=== PATIENT | female | born 1985 | race Two or more races ===

== ENCOUNTER 2017-09-12 22:51 | Emergency (ER) | payer OTHER ==
[2017-09-12] MEDS ORDERED: Naproxen TAB* 250 MG PO ONE (23:16)
[2017-09-12] MEDS ORDERED: Cyclobenzaprine TAB* 10 MG PO ONE (23:17)
[2017-09-13 00:18] VITALS: BP 104/58
--- NOTE | 2017-09-13 03:44 | ED ---
Esa Ramos Nilda, scribed for Thiago Boucher MD on 09/12/17 at 2324 . Adult Trauma - HPI Summary HPI Summary: This patient is a 31 year old F BIBA accompanied by with a chief complaint of constant lower back pain (burning) s/p slipping down a few steps and landing on back about 20 mins ago. Pt states she was ambulatory after fall and was able to stand up unassisted. The patient rates the pain 6/10 in severity. Symptoms aggravated by movement and palpation, and alleviated by rest. Patient reports abrasion on lower back. She denies numbness and weakness in LE. LNMP 5 days ago. She states no daily medications or other PMHx. - History of Current Complaint Chief Complaint: EDBackInjuryPain Stated Complaint: FALL/LOWER BACK PAIN Time Seen by Provider: 09/12/17 23:06 Hx Obtained From: Patient Mechanism of Injury: Fall Ambulatory at the Scene: Yes Loss of Consciousness: no loss of consciousness Onset/Duration: Started Minutes Ago, Traumatic, Still Present Onset of Pain: Immediate Current Severity: Moderate Pain Intensity: 6 Pain Scale Used: 0-10 Numeric Location: Back - lower Character: Burning Aggravating Factor(s): Movement, Palpation Alleviating Factor(s): Rest Associated Signs & Symptoms: Positive: Other: - abrasion on lower back, lower back pain; She denies numbness and weakness in LE - Allergy/Home Medications Allergies/Adverse Reactions: Allergies Allergy/AdvReac Type Severity Reaction Status Date / Time No Known Allergies Allergy Verified 09/12/17 23:08 PMH/Surg Hx/FS Hx/Imm Hx Sensory History: Denies: Hx Legally Blind EENT History: Denies: Hx Deafness Infectious Disease History: No Infectious Disease History: Denies: Traveled Outside the [place] in Last 30 Days - Social History Lives: With Family Alcohol Use: Rare Substance Use Type: Reports: None Smoking Status (MU): Never Smoked Tobacco Review of Systems Positive: Other - mechanical fall Positive: Other - lower back pain Positive: Other - abrasion on lower back Negative: Weakness, Numbness All Other Systems Reviewed And Are Negative: Yes Physical Exam - Summary Physical Exam Summary: Appearance: Well appearing, no pain distress Skin: warm, dry, reflects adequate perfusion, 3x2 cm abrasion on left side to midline of mid-lumbar area. Head/face: normal Eyes: EOMI, ROSY ENT: normal Neck: supple, non-tender Respiratory: CTA, breath sounds present Cardiovascular: RRR, pulses symmetrical Abdomen: non-tender, soft Bowel sounds: present Musculoskeletal: strength/ROM intact, Tenderness and spasm at left lumbar area. Negative straight leg raise. Neuro: normal, sensory motor intact, A&Ox3 Triage Information Reviewed: Yes Vital Signs On Initial Exam: Initial Vitals Temp Pulse Resp BP Pulse Ox 98.4 F 72 16 107/61 100 09/12/17 22:56 09/12/17 22:56 09/12/17 22:56 09/12/17 22:56 09/12/17 22:56 Vital Signs Reviewed: Yes Diagnostics - Vital Signs Vital Signs Temp Pulse Resp BP Pulse Ox 09/12/17 22:56 98.4 F 72 16 107/61 100 - Laboratory Lab Statement: Any lab studies that have been ordered have been reviewed, and results considered in the medical decision making process. - Radiology L-spine XR Radiology Interpretation Completed By: ED Physician - L-spine XR reveals negative for fracture. Cannot fully evaluate spinous process of L1. Re-Evaluation - Re-Evaluation First Eval Re-Evaluation Time: 23:59 Change: Improved Comment: Reviewed imaging with pt. Pt feels better. She declines trigger point injection. She is agreeable to D/C. Adult Trauma Course/Dx - Course Course Of Treatment: fall with abrasion and contusion. No fx seen on xray. Rads report pending. Offered trigger point injection for spasm but refused. Tx with oral meds with improvement. - Diagnoses Provider Diagnoses: Lumbar contusion, Lumbar strain, Abrasion Discharge - Sign-Out/Discharge Documenting (check all that apply): Discharge - home - Discharge Plan Condition: Good Disposition: HOME Prescriptions: Cyclobenzaprine (NF) [Cyclobenzaprine 5 MG (NF)] 5 mg PO TID PRN #10 tab PRN Reason: muscle pain Patient Education Materials: Low Back Strain (ED), Abrasion (ED) Referrals: [facility] - [facility] WINTER [Primary Care Provider] - Additional Instructions: Ibuprofen as needed. Ice, massage and stretching in the area. Neosporin to the abrasion. Return if worse, new symptoms or other concerns. - Billing Disposition and Condition Condition: GOOD Disposition: HOME The documentation as recorded by the Esa petersen Nilda accurately reflects the service I personally performed and the decisions made by , Thiago Boucher MD.
--- NOTE | 2017-09-13 07:55 | RAD ---
HISTORY: Fall, lumbar pain COMPARISONS: None VIEWS: 3 , Frontal, lateral, and coned-down lateral sacral views of the lumbar spine FINDINGS: ALIGNMENT: The alignment is normal. VERTEBRAL BODIES: The vertebral body heights are normal. The interpedicular distances are normal. JOINTS: The facet joints are normal. INTERVERTEBRAL DISCS: The intervertebral disc heights are normal. SOFT TISSUE: Unremarkable. OTHER: The pelvis is unremarkable. The lung bases are clear. An IUD is noted IMPRESSION: UNREMARKABLE RADIOGRAPHS OF THE LUMBAR SPINE
== END 2017-09-13 00:17 | disposition home or self-care (01) ==
LOC: ED 22:51
DX: S30.0XXA Contusion of lower back and pelvis, initial encounter (principal); S30.810A Abrasion of lower back and pelvis, initial encounter; S39.012A Strain of muscle, fascia and tendon of lower back, initial encounter; W10.9XXA Fall (on) (from) unspecified stairs and steps, initial encounter; Y92.9 Unspecified place or not applicable
CPT/HCPCS: 72100; 99282; A9270-GY